=== PATIENT | male | born 1970 | race Caucasian/White ===

== ENCOUNTER 2021-12-13 11:11 | Outpatient (REF) | payer OTHER, SELFPAY ==
[2021-12-13 14:43] LABS: ALT 58 U/L (16-63); AST 27 U/L (15-37); Albumin 4.3 g/dL (3.4-5.0); Alkaline Phosphatase 81 U/L (46-116); Anion Gap 7.3 mmol/L (3-11); BUN 21 mg/dL (7-18); Bilirubin, Total 0.6 mg/dL (0.2-1.0); CO2 28.7 mmol/L (21.0-32.0); Calcium 9.4 mg/dL (8.5-10.1); Calculated LDL 135 mg/dL (<100); Chloride 107 mmol/L (98-107); Cholesterol 200 mg/dL (<200); Glucose 111 mg/dL (74-106); HDL Cholesterol 40 mg/dL (40-60); Potassium 4.5 mmol/L (3.5-5.1); Sodium 143 mmol/L (136-145); Total Protein 7.1 g/dL (6.4-8.2); Triglyceride 129 mg/dL (<150)
== END 2021-12-13 11:12 | disposition home or self-care (01) ==
LOC: NCHCN 11:11
PROVIDERS: PCP Nurse Practitioner Family; Visit Provider Nurse Practitioner Family
DX: Z00.00 Encounter for general adult medical examination without abnormal findings (principal)
CPT/HCPCS: 80053; 80061

== ENCOUNTER 2024-09-18 05:18 | Emergency (ER) | payer OTHER, SELFPAY | END 2024-09-18 08:59 | disposition home or self-care (01) | PROVIDERS: Emergency Provider Emergency Medicine Emergency Medical Services; PCP Nurse Practitioner Family | DX: L72.3 Sebaceous cyst (principal) | CPT/HCPCS: 10061; J0665 ==